=== PATIENT | male | born 1955 | race Caucasian/White ===

== ENCOUNTER → 2017-03-14 | Outpatient (REF) | LOC: ZLAB.WCH 09:06 | DX: Z01.89 Encounter for other specified special examinations (principal) ==

== ENCOUNTER → 2017-03-15 | Outpatient (REF) | LOC: ZLAB.WCH 08:43 | DX: Z01.89 Encounter for other specified special examinations (principal) ==

== ENCOUNTER 2021-09-11 14:56 | Inpatient (IN) | payer MEDICARE, BC ==
[~2021-09-11] VITALS: Ht 170.2 cm; Wt 100.7 kg
[2021-09-11] VITALS (8 sets, daily range): BP systolic 95–183; BP diastolic 39–84; PULSE 82–93; TEMP 97.9–99.2
[2021-09-11 16:11] LABS: ALBUMIN 2.7 gm/dL (3.4-4.8); BILIRUBIN,TOTAL 0.2 mg/dL (0.2-1.2); C-REACTIVE PROTEIN 0.96 mg/dL (0.00-0.50); CALCIUM 8.2 mg/dL (8.4-10.2); CREATININE, serum 2.83 mg/dL (0.72-1.25); MAGNESIUM 2.1 mg/dL (1.6-2.6); POTASSIUM 5.1 mmol/L (3.5-4.5); TOTAL PROTEIN 5.7 gm/dL (6.2-8.1)
[2021-09-11 16:19] LABS: BASO % 0.5 % (0.0-2.0); EOS # 0.3 K/mm3 (0.0-0.7); EOS % 3.5 % (0.0-4.0); GRAN # 5.6 K/mm3 (1.4-6.5); GRAN % 76.7 % (42.2-75.2); LYMPH % 13.4 % (20.0-51.0); MEAN CELL VOLUME 98 fl (80.0-100.0); MEAN CORPUSCULAR HGB CONC 30 g/dl (33.0-37.0); MEAN PLATELET VOLUME 11.3 fl (7.4-10.4); MONO # 0.4 K/mm3 (0.1-0.6); MONO % 5.2 % (1.7-9.3); PLATELET COUNT 231 K/mm3 (130-400); RED BLOOD COUNT 1.58 M/mm3 (4.20-5.60)
[2021-09-11 16:22] LABS: HEMATOCRIT 15.5 % (42.0-52.0); MEAN CORPUSCULAR HEMOGLOBIN 29 pg (27-31)
[2021-09-11 16:23] LABS: HEMOGLOBIN 4.6 g/dl (13.5-18.0)
[2021-09-11] MEDS ORDERED: ZYLOPRIM 100MG100 MG PO (17:33)
[2021-09-11] MEDS ORDERED: NORVASC 10MG10 MG PO (17:34)
[2021-09-11] MEDS ORDERED: WELLBUTRIN XL150 MG PO (17:35)
[2021-09-11] MEDS ORDERED: PLAVIX 75MG TAB75 MG PO (17:36)
[2021-09-11] MEDS ORDERED: ARICEPT10 MG PO (17:38)
[2021-09-11] MEDS ORDERED: LEXAPRO20 MG PO (17:38)
[2021-09-11] MEDS ORDERED: LAMICTAL200 MG PO (17:39)
[2021-09-11] MEDS ORDERED: LASIX 80MG TABL80 MG PO (17:39)
[2021-09-11] MEDS ORDERED: LAMICTAL150 MG PO (17:39)
[2021-09-11] MEDS ORDERED: COZAAR 25MG25 MG/TAB PO (17:40)
[2021-09-11] MEDS ORDERED: NAMENDA 10MG TA10 MG PO (17:40)
[2021-09-11] MEDS ORDERED: PRAVACHOL 40MG40 MG PO (17:41)
[2021-09-11] MEDS ORDERED: SEROQUEL50 MG PO (17:41)
[2021-09-11] MEDS ORDERED: FLOMAX 0.40.4 MG/CAP PO (17:42)
[2021-09-11] MEDS ORDERED: RISPERDAL 0.20.25 MG PO (17:42)
[2021-09-11] MEDS ORDERED: ASPIRIN 81M81 MG/TA2 PO (17:43)
[2021-09-11] MEDS ORDERED: NATURE'S BLEND100 M2 PO (17:44)
[2021-09-11] MEDS ORDERED: FLEXERIL 1010 MG/TAB PO (17:44)
[2021-09-11] MEDS ORDERED: DULCOLAX STOOL100 MG PO (17:45)
[2021-09-11] MEDS ORDERED: VITAMIND3 5000 PO (17:45)
[2021-09-11 22:59] LABS: HEMOGLOBIN 5.2 g/dl (13.5-18.0)
[2021-09-11 23:00] LABS: HEMATOCRIT 16.8 % (42.0-52.0)
[2021-09-11 23:37] LABS: COLLECTION METHOD CLEAN CATCH
[2021-09-11 23:48] LABS: PH 6 (5-8); SQUAMOUS EPITHELIAL None Seen /hpf (0-10); URINE APPEARANCE Clear (CLEAR/HAZY); URINE BACTERIA None Seen /hpf (NONE SEEN); URINE BILIRUBIN Negative (NEGATIVE); URINE BLOOD Negative (NEGATIVE); URINE COLOR Yellow (YELLOW); URINE GLUCOSE 1+ (NEGATIVE); URINE KETONE Negative (NEGATIVE); URINE LEUKOCYTE ESTERASE Negative (NEGATIVE); URINE NITRATE Negative (NEGATIVE); URINE PROTEIN(semi-quant) 3+ (NEGATIVE); URINE RBC 0-2 /hpf (0-2); URINE UROBILINOGEN Negative (NEGATIVE)
[2021-09-12] VITALS (18 sets, daily range): BP systolic 133–168; BP diastolic 50–71; PULSE 69–87; TEMP 97.6–99.4
--- NOTE | 2021-09-12 01:36 | NUR ---
PATIENT TO ROOM 357 AT 1910. ALERT AND ORIENTED, ALTHOUGH HE HAS SHORT TERM MEMORY LOSS AND NEEDS FREQUENT REORIENTING. AMBULATES TO BATHROOM WITH STANDBY ASSIST. L FA FISTULA, BRUIT AND THRILL PRESENT. INT TO R AC WITH PRBC INFUSING. FIRST UNIT COMPLETED AND HGB NOW UP TO 5.2, CALLED TO [facility], AND ANOTHER UNIT OF PRBC ORDERED AND INFUSING. URINE PROTEIN/CREAT SENT TO LAB PER ORDERS. AWAITING STOOL SAMPLE FOR OCCULT STOOL. PATIENT RESTING IN BED AT THIS TIME.
[2021-09-12 02:59] LABS: HEMATOCRIT 19.7 % (42.0-52.0); HEMOGLOBIN 6.1 g/dl (13.5-18.0)
[2021-09-12 08:02] LABS: BASO # 0.1 K/mm3 (0.0-0.2); BASO % 0.7 % (0.0-2.0); EOS # 0.5 K/mm3 (0.0-0.7); EOS % 5.2 % (0.0-4.0); GRAN # 7.4 K/mm3 (1.4-6.5); GRAN % 72.5 % (42.2-75.2); HEMOGLOBIN 7.1 g/dl (13.5-18.0); LYMPH # 1.4 K/mm3 (1.2-3.4); LYMPH % 13.4 % (20.0-51.0); MEAN CELL VOLUME 94 fl (80.0-100.0); MEAN CORPUSCULAR HEMOGLOBIN 29 pg (27-31); MEAN CORPUSCULAR HGB CONC 31 g/dl (33.0-37.0); MEAN PLATELET VOLUME 10.5 fl (7.4-10.4); MONO # 0.7 K/mm3 (0.1-0.6); MONO % 7.2 % (1.7-9.3); PLATELET COUNT 240 K/mm3 (130-400); RED BLOOD COUNT 2.49 M/mm3 (4.20-5.60); REDCELL DISTRIBUTION WIDTH-CV 18.3 % (11.5-14.5)
[2021-09-12 08:03] LABS: HEMATOCRIT 23.3 % (42.0-52.0)
[2021-09-12 08:18] LABS: ALBUMIN 2.6 gm/dL (3.4-4.8); CALCIUM 8.1 mg/dL (8.4-10.2); CREATININE, serum 2.37 mg/dL (0.72-1.25); PHOSPHOROUS 3.2 mg/dL (2.3-4.7); POTASSIUM 4.5 mmol/L (3.5-4.5)
--- NOTE | 2021-09-12 09:20 | NUR ---
Initial visit; Patient thanked Mig Tig Welder for looking in on him and offering God's blessings. Mig Tig Welder will follow up.
--- NOTE | 2021-09-12 10:05 | NUR ---
PT SITTING UP IN BED. MORNING MEDICATIONS GIVEN. SHIFT ASSESSMENT COMPLETED. DENIES ANY PAIN AT THIS TIME. REPORTS NO DISSINESS WITH ACTIVITY. CONTINUING TO MONITOR.
--- NOTE | 2021-09-12 14:54 | NUR ---
transplant worker and SW student conducted an intake to discuss discharge planning with the patient (ph#[phone]). Patient lives at home with private home health services. Maya Barajas, his privately funded home nurse, was in room at the time of intake, and she said that she comes out to patient's home 5 days a week (ph#[phone]). Patient's next of kin is his guardian/POA: Faheem (ph#[phone]). Patient states that his PCP is Dr. Flores, and he recieves his medications through [facility] in [place], [place]. Patient states he is independent with his ADL's. Patient utilizes a CPAP, which he was usure where he gets the equiptment from, and a walker. Patient states he has filled out a DPOA-HC before, but is unsure where it may be. Discharge plan: Pending PT & OT recs
--- NOTE | 2021-09-12 20:47 | NUR ---
Patient is resting in bed, alert and oriented x 4, VSS, denies pain, nausea or vomiting. Assessment completed, medications provided. No further needs at this time. Call light within reach.
[2021-09-13] VITALS (17 sets, daily range): BP systolic 98–157; BP diastolic 48–71; PULSE 66–82; TEMP 97.2–98.5
--- NOTE | 2021-09-13 06:06 | NUR ---
Patient took his bowel prep, has been NPO after midnight. Waiting for procedure. Report will be given to day RN.
[2021-09-13 06:23] LABS: MEAN CELL VOLUME 97 fl (80.0-100.0); MEAN CORPUSCULAR HGB CONC 30 g/dl (33.0-37.0); MEAN PLATELET VOLUME 11.4 fl (7.4-10.4); PLATELET COUNT 220 K/mm3 (130-400); RED BLOOD COUNT 2.12 M/mm3 (4.20-5.60); REDCELL DISTRIBUTION WIDTH-CV 18.3 % (11.5-14.5); RETIC # 0.12 M/mm3 (0.02-0.16); RETIC % 5.7 % (0.5-3.52)
[2021-09-13 06:31] LABS: HEMATOCRIT 20.5 % (42.0-52.0); MEAN CORPUSCULAR HEMOGLOBIN 29 pg (27-31)
[2021-09-13 06:33] LABS: HEMOGLOBIN 6.1 g/dl (13.5-18.0)
[2021-09-13 06:38] LABS: ALBUMIN 2.4 gm/dL (3.4-4.8); CALCIUM 7.7 mg/dL (8.4-10.2); CREATININE, serum 2.25 mg/dL (0.72-1.25); PHOSPHOROUS 3.2 mg/dL (2.3-4.7); POTASSIUM 3.9 mmol/L (3.5-4.5)
--- NOTE | 2021-09-13 07:21 | NUR ---
Pt off unit for colonoscopy at this time.
--- NOTE | 2021-09-13 08:45 | NUR ---
Shift assessment complete. Pt back from EGD/colonoscopy and resting in bed. A&Ox4 but drowsy from anesthesia. Denies pain. Heart RRR. Lungs CTA. Denies needs at this time. Call light in reach.
--- NOTE | 2021-09-13 09:30 | NUR ---
Initial visit; Patient thanked Equipment Man for following up and offering Blessings this morning. A visitor brought a smile to Tahir's face.
--- NOTE | 2021-09-13 15:00 | NUR ---
YORDY notified this RN at 1230 that pt's IV site looked bloody. Assessed site and it appeared to be leaking. 45 minutes into blood transfusion. IV pump placed on standby, multiple attempts by greenhouse or nursery transplanter Colleen to start new IV unsuccessful, right AC site stabilized and no longer leaking. Transfusion restarted at 1250. Blood finished infusing w/o issues at site. Site began leaking again during infusion of NS flush bag after about 80 mls infused. notified of difficulty w/IV access.
[2021-09-13 15:57] LABS: HEMATOCRIT 22.1 % (42.0-52.0)
[2021-09-13 15:59] LABS: HEMOGLOBIN 6.9 g/dl (13.5-18.0)
--- NOTE | 2021-09-13 16:13 | NUR ---
notified of pt's post-tranfusion hemoglobin-6.9 also notified that pt is a difficult stick and having trouble maintaining IV access. Verbal order that pt does not need IV access overnight if unable to get a new site and can try again in morning if needed.
--- NOTE | 2021-09-13 21:00 | NUR ---
PT is in chair, alert and oriented, watching TV. Denies pain, nausea or vomiting. Assessment completed, medications provided. No further needs at this time. Call light within reach.
[2021-09-14] VITALS (9 sets, daily range): BP systolic 112–147; BP diastolic 45–77; PULSE 67–90; TEMP 97.7–98.5
[2021-09-14 06:12] LABS: MEAN CELL VOLUME 95 fl (80.0-100.0); MEAN CORPUSCULAR HGB CONC 30 g/dl (33.0-37.0); MEAN PLATELET VOLUME 11.3 fl (7.4-10.4); PLATELET COUNT 230 K/mm3 (130-400); RED BLOOD COUNT 2.35 M/mm3 (4.20-5.60); REDCELL DISTRIBUTION WIDTH-CV 17.9 % (11.5-14.5)
[2021-09-14 06:17] LABS: HEMATOCRIT 22.2 % (42.0-52.0); HEMOGLOBIN 6.6 g/dl (13.5-18.0); MEAN CORPUSCULAR HEMOGLOBIN 28 pg (27-31)
--- NOTE | 2021-09-14 06:23 | NUR ---
Lab called to report Hgb 6.6. Called Declan Gonzales to report level. He will put orders in system.
[2021-09-14 06:27] LABS: ALBUMIN 2.2 gm/dL (3.4-4.8); CALCIUM 7.7 mg/dL (8.4-10.2); CREATININE, serum 2.93 mg/dL (0.72-1.25); PHOSPHOROUS 3.8 mg/dL (2.3-4.7)
--- NOTE | 2021-09-14 07:17 | NUR ---
Pt asked about what will happened today. It was explained the POC. Report given to day RN.
--- NOTE | 2021-09-14 09:41 | NUR ---
Assessment completed, alert/oriented, vital signs stable, denies pain or discomfort, denies feeling lightheaded or dizzy, denies any resp.difficulty and lungs are CTA, heart RRR/distal pulses are palpable, hemaglobin 6.6 today and will give 1 unit PRBC when ready, he is sitting at edge of bed and has ate his breakfast, denies other needs
--- NOTE | 2021-09-14 15:10 | NUR ---
Transplant Case Manager contacted patient's guardian, Faheem to review discharge planning. SW also confirmed that patient's guardianship paperwork was located in the chart. Faheem also referred to a neuropsych evaluation that was located on patient's chart. Per the evaluation, patient needs assistance with complex decision making and managing his finances. Faheem reported that patient's caregiver Maya is there five days a week and assists with medication management. Faheem also advised that patient has someone that comes to the home two hours a week to clean the house. Faheem also visits patient often and does all of his grocery shopping. Faheem advised that if later on, patient needs long term acute care registered nurse care, he has money to pay for this. Faheem advised he will be in to visit patient later tonight.
--- NOTE | 2021-09-14 20:00 | NUR ---
Patient is in the chair, alert and oriented x 4, VSS, some htn. Denies pain, nausea or vimiting. POC explained. Waiting for the lab results for HGB. Assessment completed, medications provided. No further needs at this time. Call light within reach.
[2021-09-14 20:39] LABS: HEMATOCRIT 22.3 % (42.0-52.0)
--- NOTE | 2021-09-14 22:00 | NUR ---
Lab result HGB 7, reported to Melania. No blood ordered.
[2021-09-15] VITALS (10 sets, daily range): BP systolic 114–142; BP diastolic 45–77; PULSE 66–80; TEMP 97.3–98.2
[2021-09-15 06:16] LABS: ALBUMIN 2.2 gm/dL (3.4-4.8); CALCIUM 7.9 mg/dL (8.4-10.2); CREATININE, serum 2.39 mg/dL (0.72-1.25); PHOSPHOROUS 3.7 mg/dL (2.3-4.7); POTASSIUM 4.3 mmol/L (3.5-4.5)
--- NOTE | 2021-09-15 06:33 | NUR ---
Pt has had a calm night. All needs met. Report will be given to day RN.
[2021-09-15 08:14] LABS: HEMOGLOBIN 6.5 g/dl (13.5-18.0)
--- NOTE | 2021-09-15 09:30 | NUR ---
Assessment completed, alert/oriented, vital signs stable, denies pain or discomfort, hemaglobin 6.5 this morning/ I have notified hospitalist who are going to order another unit of PRBC, patient denies any symptoms of fatigure/dizzy/lightheadedness, heart RRR/distal pulses are palpable, lungs CTA/ no resp.difficulty, no signs of overt bleeding or blood loss, he is eating and drinking well, denies other needs, will continue to monitor
[2021-09-16] VITALS (11 sets, daily range): BP systolic 125–156; BP diastolic 38–60; PULSE 65–84; TEMP 97.4–99.3
[2021-09-16 06:19] LABS: ALBUMIN 2.3 gm/dL (3.4-4.8); CREATININE, serum 2.2 mg/dL (0.72-1.25); PHOSPHOROUS 3.7 mg/dL (2.3-4.7); POTASSIUM 4.5 mmol/L (3.5-4.5)
[2021-09-16 07:40] LABS: BASO % 0.5 % (0.0-2.0); EOS # 0.5 K/mm3 (0.0-0.7); EOS % 6.5 % (0.0-4.0); GRAN # 5.6 K/mm3 (1.4-6.5); GRAN % 73.3 % (42.2-75.2); HEMATOCRIT 22.2 % (42.0-52.0); LYMPH # 0.9 K/mm3 (1.2-3.4); LYMPH % 12.1 % (20.0-51.0); MEAN CELL VOLUME 95 fl (80.0-100.0); MEAN CORPUSCULAR HEMOGLOBIN 30 pg (27-31); MEAN CORPUSCULAR HGB CONC 31 g/dl (33.0-37.0); MEAN PLATELET VOLUME 11.5 fl (7.4-10.4); MONO # 0.5 K/mm3 (0.1-0.6); MONO % 6.9 % (1.7-9.3); PLATELET COUNT 222 K/mm3 (130-400); RED BLOOD COUNT 2.33 M/mm3 (4.20-5.60); REDCELL DISTRIBUTION WIDTH-CV 17.3 % (11.5-14.5)
[2021-09-16 07:42] LABS: HEMOGLOBIN 6.9 g/dl (13.5-18.0)
--- NOTE | 2021-09-16 08:20 | NUR ---
Shift assessment complete. Pt sitting up in recliner, alert and oriented. Heart RRR. Lungs CTA. Vitals stable. Hgb 6.9 this AM, 1 unit PRBCs ordered. Pt reports occasional lightheadedness when up walking, denies other symptoms. No needs reported at this time. Continuing to monitor.
--- NOTE | 2021-09-16 10:11 | NUR ---
Per physician, patient accepted for transfer to [facility] in . Patient will transfer on Saturday.
[2021-09-16 13:15] LABS: HEMATOCRIT 22.3 % (42.0-52.0); HEMOGLOBIN 7.1 g/dl (13.5-18.0)
[2021-09-16 14:28] LABS: INR 1.1 (0.8-3.0)
[2021-09-16 14:30] LABS: PARTIAL THROMBOPLASTIN TIME 25.1 SECONDS (26.0-37.0)
--- NOTE | 2021-09-16 17:53 | NUR ---
Pt received one unit of blood today. Hgb now 7.1. Denies other needs. Up ad brennan in room and gets up to recliner throughout day.
[2021-09-17 00:26] VITALS: BP 135/49; PULSE 63; TEMP 98.1
[2021-09-17 04:12] VITALS: BP 127/44; PULSE 69; TEMP 98.3
[2021-09-17 06:35] LABS: BASO % 0.4 % (0.0-2.0); EOS # 0.6 K/mm3 (0.0-0.7); EOS % 6.8 % (0.0-4.0); GRAN % 72.6 % (42.2-75.2); LYMPH % 12.3 % (20.0-51.0); MEAN CELL VOLUME 94 fl (80.0-100.0); MEAN CORPUSCULAR HGB CONC 32 g/dl (33.0-37.0); MEAN PLATELET VOLUME 11.3 fl (7.4-10.4); MONO # 0.6 K/mm3 (0.1-0.6); MONO % 7.2 % (1.7-9.3); PLATELET COUNT 230 K/mm3 (130-400); RED BLOOD COUNT 2.37 M/mm3 (4.20-5.60); REDCELL DISTRIBUTION WIDTH-CV 16.9 % (11.5-14.5)
[2021-09-17 06:40] LABS: HEMATOCRIT 22.3 % (42.0-52.0); HEMOGLOBIN 7.1 g/dl (13.5-18.0); MEAN CORPUSCULAR HEMOGLOBIN 30 pg (27-31)
[2021-09-17 07:05] LABS: ALBUMIN 2.3 gm/dL (3.4-4.8); CALCIUM 7.9 mg/dL (8.4-10.2); CREATININE, serum 2.21 mg/dL (0.72-1.25); PHOSPHOROUS 3.7 mg/dL (2.3-4.7); POTASSIUM 4.5 mmol/L (3.5-4.5)
[2021-09-17 07:31] VITALS: BP 145/49; PULSE 84; TEMP 98.7
--- NOTE | 2021-09-17 08:40 | NUR ---
PT PLEASANT,AOX4, DENIES PAIN, ASSESSMENT PERFORMED, MEDICATIONS GIVEN, NO OTHER NEEDS. [facility] CONTACTED RN ABOUT PT LATEST LABS AND VITALS FOR TRANSFER, [facility] LATER CALLED WITH ACCEPTANCE AND ROOM NUMBER. NOTIFIED HIGH RISK CASE MANAGER
[2021-09-17] MEDS ORDERED: PROTONIX 40MG T40 MG PO (09:33)
[2021-09-17] MEDS ORDERED: CARAFATE 1GM1 G PO (09:34)
--- NOTE | 2021-09-17 11:26 | NUR ---
REPORT CALLED TO RUBIA RN, EMS REPORT GIVEN, PT DC WITH INT, FLUIDS PULLED PER EMS ORDER, PT LEFT VIA CART WITH EMS. DPOA LEAVING WITH PT BELONGINGS. NO OTHER NEEDS
== END 2021-09-17 11:30 | disposition short-term general hospital (02) | DRG 378 ==
LOC: COL.ER 14:56 → MEDICAL 17:53
PROVIDERS: Family Medicine; Internal Medicine; Internal Medicine Gastroenterology; Internal Medicine Nephrology; Physician Assistant; Student in an Organized Health Care Education/Training Program; ADMIT Internal Medicine
PROC: 0DJ08ZZ Inspection of Upper Intestinal Tract, Via Natural or Artificial Opening Endoscopic (ICD-10-PCS; principal; 2021-09-13 07:30)
PROC: 0DBL8ZZ Excision of Transverse Colon, Via Natural or Artificial Opening Endoscopic (ICD-10-PCS; 2021-09-13 07:30)
DX: K92.1 Melena (principal); D62 Acute posthemorrhagic anemia; I12.9 Hypertensive chronic kidney disease with stage 1 through stage 4 chronic kidney disease, or unspecified chronic kidney disease; E11.22 Type 2 diabetes mellitus with diabetic chronic kidney disease; E78.5 Hyperlipidemia, unspecified; F32.A Depression, unspecified; R41.3 Other amnesia; N18.9 Chronic kidney disease, unspecified; K21.9 Gastro-esophageal reflux disease without esophagitis; N40.0 Benign prostatic hyperplasia without lower urinary tract symptoms; E87.5 Hyperkalemia; M10.9 Gout, unspecified; E11.65 Type 2 diabetes mellitus with hyperglycemia; G47.33 Obstructive sleep apnea (adult) (pediatric); M19.90 Unspecified osteoarthritis, unspecified site; K29.70 Gastritis, unspecified, without bleeding; K26.9 Duodenal ulcer, unspecified as acute or chronic, without hemorrhage or perforation; Z86.73 Personal history of transient ischemic attack (TIA), and cerebral infarction without residual deficits; Z79.82 Long term (current) use of aspirin; Z79.02 Long term (current) use of antithrombotics/antiplatelets; Z87.891 Personal history of nicotine dependence
CPT/HCPCS: 99223-AI; 99232-AI; 99233-AI; 99239; J1756; J2597; J2704; J7030; J7120; P9016

== ENCOUNTER → 2023-09-05 | Outpatient (CLI) | payer MEDICARE, BC ==
[~2023-09-05] VITALS: Ht 170.2 cm; Wt 125.1 kg
[~2023-09-05] MED LIST: APRESOLINE50 MG PO; ARICEPT10 MG PO; ASPIRIN 81M81 MG/TA2 PO; CARAFATE 1GM1 G PO; COREG 6.256.25 MG/TA PO; COZAAR 25MG25 MG/TAB PO; DEMADEX 20MG20 M1 PO; DULCOLAX STOOL100 MG PO; FLEXERIL 1010 MG/TAB PO; FLOMAX 0.40.4 MG/CAP PO; IMDUR 60MG60 MG/TAB PO; LAMICTAL150 MG PO; LAMICTAL200 MG PO; LASIX 80MG TABL80 MG PO; LEXAPRO20 MG PO; LIPITOR20 MG PO; NAMENDA 10MG TA10 MG PO; NATURE'S BLEND100 M2 PO; NORVASC 10MG10 MG PO; PLAVIX 75MG TAB75 MG PO; PRAVACHOL 40MG40 MG PO; PROTONIX 40MG T40 MG PO; RISPERDAL 0.20.25 MG PO; SEROQUEL50 MG PO; VITAMIND3 5000 PO; WELLBUTRIN XL150 MG PO; ZYLOPRIM 100MG100 MG PO
[2023-09-05 09:50] VITALS: BP 144/74; PULSE 48; TEMP 98.6
[2023-09-05 10:20] VITALS: BP 127/55; PULSE 47
== END ==
LOC: COL.RAD 08:15
DX: Z45.2 Encounter for adjustment and management of vascular access device (principal)

== ENCOUNTER 2023-12-12 09:56 | Day surgery (SDC) | payer MEDICARE, BC ==
[~2023-12-12] VITALS: Ht 170.3 cm; Wt 97.0 kg
[2023-12-12] MEDS ORDERED: 1/2 NS 1,000 ML IV SCH (10:15)
[2023-12-12] MEDS ORDERED: NS Flush 10 ML SYRINGE PRN ICA (10:15)
[2023-12-12 10:46] LABS: HEMOGLOBIN 11.9 g/dl (13.5-18.0); MEAN CELL VOLUME 94 fl (80.0-100.0); MEAN CORPUSCULAR HEMOGLOBIN 31 pg (27-31); MEAN CORPUSCULAR HGB CONC 33 g/dl (33.0-37.0); MEAN PLATELET VOLUME 10.3 fl (7.4-10.4); PLATELET COUNT 162 K/mm3 (130-400); RED BLOOD COUNT 3.79 M/mm3 (4.20-5.60); REDCELL DISTRIBUTION WIDTH-CV 13.8 % (11.5-14.5)
[2023-12-12 10:54] VITALS: BP 146/71; PULSE 54; TEMP 98.2
[2023-12-12 10:54] LABS: HEMATOCRIT 35.7 % (42.0-52.0)
[2023-12-12 11:03] LABS: CALCIUM 9.7 mg/dL (8.4-10.2); CREATININE, serum 6.5 mg/dL (0.72-1.25); POTASSIUM 5.4 mEq/L (3.5-4.5)
[2023-12-12 11:13] LABS: INR 1.1 (0.8-3.0); PROTHROMBIN TIME 11.6 SECONDS (9.7-12.8)
[2023-12-12] MEDS ORDERED: CATAPRES 0.1MG0.1 MG PO (11:30)
[2023-12-12] MEDS ORDERED: PHOSLO667 MG PO (11:31)
[2023-12-12] MEDS ORDERED: Lidocaine PF 2% (20 MG/ML) 5 ML VIAL ONE (11:31)
[2023-12-12 12:15] VITALS: BP 113/70; PULSE 55
--- NOTE | 2023-12-12 12:15 | NUR ---
pt is awake and sits up in bed, call light in reach, sips on water has no c/o
[2023-12-12 12:30] VITALS: BP 125/60; PULSE 56
[2023-12-12 12:45] VITALS: BP 147/66; PULSE 55
[2023-12-12 13:00] VITALS: BP 149/78; PULSE 56
--- NOTE | 2023-12-12 13:00 | NUR ---
pt up to b/r with standby assist to void, sits on side of bed, iv d'cd intact, takes snack. family and DPOA in room, reviewed discharge inst. with pt and family on moderate sedation precautions, followup and no med changes. pt dressed, discharged via w/c with family to lobby and then to cafeteria to eat
[2023-12-12] MEDS ORDERED: NS Flush 10 ML SYRINGE BID ICA SCH (21:00)
== END 2023-12-12 13:30 | disposition home or self-care (01) ==
LOC: COL.CAR 09:56
PROVIDERS: Internal Medicine Cardiovascular Disease
DX: I08.1 Rheumatic disorders of both mitral and tricuspid valves (principal); I69.311 Memory deficit following cerebral infarction; I10 Essential (primary) hypertension; G47.33 Obstructive sleep apnea (adult) (pediatric)
CPT/HCPCS: J2704

== ENCOUNTER 2024-03-03 08:07 | Day surgery (SDC) | payer MEDICARE, BC ==
[2024-03-03] VITALS (10 sets, daily range): BP systolic 122–173; BP diastolic 62–73; PULSE 52–60; TEMP 98.6
[~2024-03-03] VITALS: Ht 170.5 cm; Wt 96.3 kg
[~2024-03-03 08:07] MED LIST changes: +CATAPRES 0.1MG0.1 MG PO; +PHOSLO667 MG PO; -RISPERDAL 0.20.25 MG PO; +RISPERDAL 0.5M0.5 MG PO
[2024-03-03] MEDS ORDERED: 1/2 NS 1,000 ML IV SCH (08:15)
[2024-03-03 09:32] LABS: HEMOGLOBIN 10.8 g/dl (13.5-18.0); MEAN CELL VOLUME 101 fl (80.0-100.0); MEAN CORPUSCULAR HEMOGLOBIN 32 pg (27-31); MEAN CORPUSCULAR HGB CONC 32 g/dl (33.0-37.0); MEAN PLATELET VOLUME 11.3 fl (7.4-10.4); PLATELET COUNT 181 K/mm3 (130-400); RED BLOOD COUNT 3.38 M/mm3 (4.20-5.60); REDCELL DISTRIBUTION WIDTH-CV 13.9 % (11.5-14.5)
[2024-03-03 09:42] LABS: CALCIUM 10.3 mg/dL (8.4-10.2); CREATININE, serum 7.29 mg/dL (0.72-1.25)
[2024-03-03 09:50] LABS: INR 1.1 (0.8-3.0); PROTHROMBIN TIME 11.5 SECONDS (9.7-12.8)
[2024-03-03 09:51] LABS: HEMATOCRIT 34.1 % (42.0-52.0)
[2024-03-03 09:53] LABS: PARTIAL THROMBOPLASTIN TIME 29.7 SECONDS (26.0-37.0)
[2024-03-03] MEDS ORDERED: Midazolam 2 MG/2 ML VIAL IV SCH ×2 (10:35→10:56)
[2024-03-03] MEDS ORDERED: fentaNYL 50 MCG/ML 2 ML VIAL IV SCH ×2 (10:36→10:58)
[2024-03-03] MEDS ORDERED: Verapamil 2.5 MG/ML 2 ML VIAL IA SCH (11:00)
[2024-03-03] MEDS ORDERED: Nitroglycerin 100 MCG/ML (Cath Lab) 10 ML VIAL IA SCH (11:00)
[2024-03-03] MEDS ORDERED: Heparin 1,000 UNITS/ML 10 ML Multi-Dose VIAL IA SCH (11:02)
[2024-03-03] MEDS ORDERED: Iohexol 350 - 100 ML VIAL INCOR ONE (11:05)
--- NOTE | 2024-03-03 11:30 | NUR ---
Tahir transferred back to express unit after C with Dr. Oconnell. Rt radial and femoral sites look good, cms intact, no hematomas or evidence of bleeding noted. Pt hooked up for post procedure vitals. I called Tahir Oviedo's POA, and updated him. BS report and handoff of care to Jacki MOSCOSO
--- NOTE | 2024-03-03 15:55 | NUR ---
PT TOLERATED RECOVERY PERIOD WELL. VS REMAINED WITHIN NORMAL LIMITS. PT AND DPOA VERBALIZED UNDERSTANDING OF DISCHARGE INSTRUCTIONS. IV DISCONTINUED AND PT ASSISTED TO MAIN LOBBY VIA WHEELCHAIR. PT'S RIGHT RADIAL AND RIGHT FEMORAL DRESSINGS REMAINED CLEAN DRY AND INTACT. AND PT REMAINED FREE FROM SIGNS OF BLEEDING AND HEMATOMA. PT FREE FROM ACUTE CONCERNS AND COMPLAINTS UPON DISCHARGE.
== END 2024-03-03 15:59 | disposition home or self-care (01) ==
LOC: COL.CAR 08:07
PROVIDERS: Internal Medicine Cardiovascular Disease
DX: I25.10 Atherosclerotic heart disease of native coronary artery without angina pectoris (principal); E66.9 Obesity, unspecified
CPT/HCPCS: C1760; C1769; C1894; J1644; J2250; J3010; Q9967

== ENCOUNTER 2024-03-19 07:15 | Outpatient (CLI) | payer MEDICARE, BC ==
[2024-03-19] VITALS (10 sets, daily range): BP systolic 121–149; BP diastolic 59–79; PULSE 39–60; TEMP 97.7
[~2024-03-19] VITALS: Ht 170.2 cm; Wt 98.6 kg
[2024-03-19] MEDS ORDERED: ceFAZolin 1 G in Water For Injection,Sterile 10 ML IV SCH (08:00)
--- NOTE | 2024-03-19 08:58 | NUR ---
See [facility]ge reportfor procedural sedation/notes
[2024-03-19] MEDS ORDERED: Lidocaine 2% w EPI (1:100,000) 20 ML Multi-Dose VIAL IJ SCH (09:09)
[2024-03-19] MEDS ORDERED: Midazolam 2 MG/2 ML VIAL IV SCH (09:12)
[2024-03-19] MEDS ORDERED: fentaNYL 50 MCG/ML 2 ML VIAL IV SCH (09:12)
[2024-03-19] MEDS ORDERED: Heparin 1,000 UNITS/ML 10 ML Multi-Dose VIAL IV SCH (09:18)
--- NOTE | 2024-03-19 11:28 | NUR ---
Pt assisted up with standby assist to attempt to use urinal at bedside. He is now sitting up on edge of bed to finish meal tray. He is free of complaints. Respirations remain even and unlabored. Dressing clean, dry and intact. June contacted and discharge instructions reviewed with her over the phone. She is picking up her , and will call when they arrive to pickup driver pt for ride home. Pt aware. Call light in reach.
--- NOTE | 2024-03-19 11:50 | NUR ---
Pt finished meal tray. Free of complaints. Dressing over TDC insert site remains clean, dry and intact. DC instructions reviewed with pt, he expresses understanding. IV DC'd, site wrapped with coban. Awaiting arrival of family for ride home. Pt lays back in bed to wait. Call light in hand.
--- NOTE | 2024-03-19 12:10 | NUR ---
Pt assisted into wheelchair with standby assist, then assisted out to family's car with family's car. Dressing remains clean, dry and intact. He is free of complaints at discharge.
== END 2024-03-19 12:10 | disposition home or self-care (01) ==
LOC: COL.CAR 07:15
DX: N18.6 End stage renal disease (principal); Z99.2 Dependence on renal dialysis
CPT/HCPCS: J0690; J1644; J2250; J3010